=== PATIENT | female | born 1950 | race Caucasian/White ===

== ENCOUNTER 2018-02-25 00:35 | Outpatient (CLI) | payer MEDICARE, BC, SELFPAY ==
--- NOTE | 2018-02-25 16:25 | DI.MAMMO_ITS ---
SYMPTOM/DIAGNOSIS: SCREENING, Z12.31 MAMMOGRAMS: Mammograms were interpreted according to the usual protocol including computer analysis with CAD system, tomosynthesis and C view imaging. Comparison with prior examinations. Breast density B. No masses or microcalcifications are seen. There is nothing to suggest malignancy. IMPRESSION: Negative mammogram. Routine screening is recommended. Category I. MQSA ASSESSMENT OF FINDINGS: Negative. Category 1. Patient will receive a letter notifying them of these results. BI-RADS category B. There are scattered areas of fibroglandular density.
== END 2018-02-25 00:55 ==
PROVIDERS: PCP Student in an Organized Health Care Education/Training Program; Visit Provider Nurse Practitioner Family
DX: Z12.31 Encounter for screening mammogram for malignant neoplasm of breast (principal)
CPT/HCPCS: 77063; 77067

== ENCOUNTER 2018-06-02 15:16 | Outpatient (CLI) | payer MEDICARE, BC, SELFPAY ==
--- NOTE | 2018-06-02 16:15 | DI.RAD_ITS ---
SYMPTOM/DIAGNOSIS: PAIN, SWELLING, M25.562 LEFT KNEE: The joint spaces are well maintained. No joint effusion is seen. There is mild spurring of the quadriceps insertion on the patella. IMPRESSION: No acute abnormality.
== END 2018-06-02 15:36 ==
PROVIDERS: PCP Student in an Organized Health Care Education/Training Program; Visit Provider Student in an Organized Health Care Education/Training Program
DX: M25.562 Pain in left knee (principal)
CPT/HCPCS: 73562

== ENCOUNTER 2019-04-18 02:19 | Outpatient (CLI) | payer MEDICARE, BC, SELFPAY ==
--- NOTE | 2019-04-18 15:30 | DI.MAMMO_ITS ---
EXAM: MAMMO SCREENING CLINICAL HISTORY: screening Z12.39 TECHNIQUE: Mammograms were interpreted according to the usual protocol including computer analysis w [employer] CAD system, tomosynthesis and C-view imaging. COMPARISON: [id number] FINDINGS: The breasts are composed of scattered areas of fibroglandular densities, breast density category B. No suspicious masses or suspicious microcalcifications are seen. There has been no significant change . IMPRESSION: Category 1, negative mammogram. Yearly screening mammography is recommended. BI-RADS Cat 1 - Negative Breast Density - Category B - Scattered areas of fibroglandular density
== END 2019-04-18 02:39 ==
PROVIDERS: PCP Student in an Organized Health Care Education/Training Program; Visit Provider Nurse Practitioner Family
DX: Z12.31 Encounter for screening mammogram for malignant neoplasm of breast (principal)
CPT/HCPCS: 77063; 77067

== ENCOUNTER 2019-04-20 00:48 | Outpatient (CLI) | payer MEDICARE, BC, SELFPAY ==
[2019-04-20 07:36] LABS: HCT 37.2 % (36.0-46.0); HGB 11.9 g/dL (12.0-15.5); Mean Corpuscular Hemoglobin 27.2 pg (27.0-33.0); Mean Corpuscular Volume 85.1 fL (80-95); Mean Platelet Volume 8.4 fL (8.0-11.0); Platelet Count 275 x1000/uL (130-400); RBC 4.37 m/cumm (4.00-5.20); RBC Distribution Width 14.9 % (11.7-14.6); White Blood Cell Count 4.85 k/cumm (4.4-10.8)
[2019-04-20 10:07] LABS: ALT 35 U/L (14-59); AST 18 U/L (15-37); Albumin 3.6 g/dL (3.4-5.0); Alkaline Phosphatase 97 U/L (46-116); Anion Gap 7.7 mmol/L (3-11); BUN 17 mg/dL (7-18); Bilirubin, Total 0.4 mg/dL (0.2-1.0); CO2 31.3 mmol/L (21.0-32.0); Calcium 8.9 mg/dL (8.5-10.1); Calculated LDL 95 mg/dL; Chloride 100 mmol/L (98-107); Cholesterol 180 mg/dL (<200); Glucose 102 mg/dL (74-106); HDL Cholesterol 70 mg/dL (40-60); Potassium 3.9 mmol/L (3.5-5.1); Sodium 139 mmol/L (136-145); Total Protein 7.5 g/dL (6.4-8.2); Triglyceride 78 mg/dL (<150)
[2019-04-20 10:09] LABS: TSH (W/Ref FT4) 1.16 uIU/mL (0.36-3.74)
== END 2019-04-20 01:08 ==
PROVIDERS: PCP Student in an Organized Health Care Education/Training Program; Visit Provider Student in an Organized Health Care Education/Training Program
DX: I10 Essential (primary) hypertension (principal); R63.5 Abnormal weight gain; R01.1 Cardiac murmur, unspecified; R53.83 Other fatigue
CPT/HCPCS: 36415; 80053; 80061; 85027; 84443

== ENCOUNTER 2019-06-21 15:03 | Outpatient (CLI) | payer OTHER, MEDICARE, BC, SELFPAY ==
--- NOTE | 2019-06-21 13:45 | DI.RAD_ITS ---
EXAM: XR RIBS LT W PA LAT CHEST INDICATION: Pain under L breast after a fall,W19.XXXA. COMPARISON: CHEST 2 VIEWS PA,LAT from 07/07/2016 TECHNIQUE: 2D digital imaging was performed. FINDINGS: The heart size is normal. The lungs are clear. No pneumothorax is seen. A marker was placed over t he lower left ribs in the area of the patient's pain. Two oblique views of the ribs were performed. No rib fracture is identified. The left shoulder and spine appear intact. IMPRESSION: Negative chest and left ribs.
--- NOTE | 2019-06-21 13:45 | DI.RAD_ITS ---
EXAM: XR SHOULDER LT COMPLETE 2+V INDICATION: Upper arm, shoulder pain after a fall,W19.XXXA. COMPARISON: No exams were available for comparison TECHNIQUE: 2D digital imaging was performed. FINDINGS: No fracture or dislocation is seen. There are mild degenerative changes of the AC joint and glenoid. The AC joint is not widened. No tendon calcifications are seen. IMPRESSION: Negative left shoulder.
== END 2019-06-21 15:23 ==
PROVIDERS: PCP Student in an Organized Health Care Education/Training Program; Visit Provider Family Medicine
DX: M25.512 Pain in left shoulder (principal); M19.012 Primary osteoarthritis, left shoulder; R07.89 Other chest pain; W19.XXXA Unspecified fall, initial encounter
CPT/HCPCS: 71046; 71100; 73030

== ENCOUNTER 2019-06-28 14:07 | Outpatient (CLI) | payer OTHER, MEDICARE, BC, SELFPAY ==
--- NOTE | 2019-06-28 11:40 | DI.RAD_ITS ---
EXAM: XR LUMBAR SPINE COMPLETE CLINICAL HISTORY: Delayed pain, S/P fall, attn: L3-5, M54.4 LOW BACK PAIN. TECHNIQUE: 2D digital imaging was performed. COMPARISON: No exams were available for comparison FINDINGS: BONES: No fracture or destructive lesion. Vertebral bodies are unremarkable. No facet hypertrophy desiree ntified. DISKS: Intervertebral disc spaces are maintained. ALIGNMENT: Lumbar spinal alignment is within normal limits. SOFT TISSUE: Normal. IMPRESSION: Unremarkable radiographs of the lumbar spine.
== END 2019-06-28 14:27 ==
PROVIDERS: PCP Student in an Organized Health Care Education/Training Program; Visit Provider Family Medicine
DX: M54.5 Low back pain (principal); Z91.81 History of falling
CPT/HCPCS: 72110

== ENCOUNTER 2019-07-21 08:51 | Outpatient (CLI) | payer MEDICARE, BC, SELFPAY ==
--- NOTE | 2019-07-21 08:48 | DI.RAD_ITS ---
EXAM: Chest 2 Views PA,LAT CLINICAL HISTORY: Cough, rhonchi and wheezing in R upper lobe, CAP? J40 Bronchitis TECHNIQUE: 2D digital imaging was performed. COMPARISON: CHEST 2 VIEWS PA,LAT from 08/01/2010 XR RIBS LT W PA LAT CHEST from 06/21/2019 FINDINGS: The cardiac and mediastinal contours have a normal appearance. The lungs are well inflated and clear . No infiltrate, effusion or pneumothorax is seen. No spine or rib fracture is identified. IMPRESSION: Negative chest x-ray.
== END 2019-07-21 09:11 ==
PROVIDERS: PCP Student in an Organized Health Care Education/Training Program; Visit Provider Family Medicine
DX: R05 Cough (principal); J98.8 Other specified respiratory disorders; R06.2 Wheezing; J40 Bronchitis, not specified as acute or chronic
CPT/HCPCS: 71046

== ENCOUNTER 2019-11-07 12:15 | Emergency (ER) | payer MEDICARE, BC, SELFPAY ==
[2019-11-07 12:24] VITALS: BP 165/78; PULSE 85; TEMP 37; O2SAT 96
--- NOTE | 2019-11-07 13:00 | DI.RAD_ITS ---
EXAM: XR PORTABLE CHEST AP CLINICAL HISTORY: Chronic cough, rule out pneumonia TECHNIQUE: 2D digital imaging was performed. COMPARISON: CR XR CHEST 2V PA LATERAL from 07/21/2019 FINDINGS: LUNGS: Clear. No pleural abnormality seen. HEART: Normal. MEDIASTINUM: Normal. OTHER FINDINGS: None. IMPRESSION: No acute pulmonary findings. DATA REPOSITORY: RADIATION DOSE DELIVERED:
--- NOTE | 2019-11-07 13:05 | ED.GENADUL_ITS ---
Discharge Plan Disposition Patient Disposition: HOME Condition: Stable Discharge Details Chief Complaint: RespSymp Clinical Impression: Cough Primary Care Provider: Manuela Ramos ED Provider: Roberto Valentin Home Meds and New Rx's Prescriptions: Continued (DME) Compact Compressor Nebulizer Misc See Rx Instructions .ROUTE .MEDSUPPLY Qty: 1 RF: 0 magnesium oxide 400 mg magnesium capsule 400 mg PO DAILY RF: 0 paroxetine HCl [Paxil] 10 mg tablet 10 mg PO DAILY Qty: 90 RF: 3 clobetasol-emollient 0.05 % cream 15 g TP HS Qty: 1 RF: 2 ferrous sulfate [Feosol] 325 mg (65 mg iron) tablet 325 mg PO DAILY RF: 0 albuterol sulfate 90 mcg/actuation aerosol powdr breath activated 2 inh IH Q4H PRN (Reason: shortness of breath or wheezing) Qty: 1 RF: 2 multivitamin [Daily Vitamin] 1 EACH tablet 1 ea PO DAILY RF: 0 pramipexole 0.25 mg tablet 0.25 mg PO QHS Qty: 90 RF: 3 losartan-hydrochlorothiazide 100-25 mg tablet 1 tab PO DAILY Qty: 90 RF: 2 Discontinued codeine-guaifenesin 10-100 mg/5 mL liquid 10 ml PO Q6H PRN (Reason: severe cough) Qty: 100 RF: 1 No Action guaifenesin [Mucinex] 600 mg tablet extended release 12hr 600 - 1,200 mg PO Q12H Qty: 30 RF: 0 prednisone 20 mg tablet See Rx Instructions PO DAILY Qty: 1 RF: 0 benzonatate [Tessalon Perles] 100 mg capsule 100 mg PO TID PRN (Reason: cough) Qty: 40 RF: 0 Discharge Instructions Instructions: Acute Cough (ED) Additional Instructions: At this time your chest x-ray is clear, you are able to speak in full sentences, and her oxygen saturation levels are appropriate. As we discussed, you will no longer take the codeine with guaifenesin and we will add on Tessalon Perles for a trial. I cannot stress the importance of contacting your primary care provider for outpatient reevaluation and likely referral to pulmonology if your symptoms persist. Please watch for new or worsening symptoms and return to the ER for any concerns Discharge Data Discharge Date/Time-TO BE ENTERED AT DEPARTURE: 11/07/19 15:18 Medical Decision Making <Rita Riojas - Last Filed: 11/09/19 17:14> 69-year-old female presents with cough, dry since June. Patient states cough is worse at night and is keeping her from sleeping. She also describes midepigastric burning sensation and expiratory wheezes. Has been being seen by PCP via telemedicine and has been prescribed albuterol inhalers, codeine with guaifenesin cough suppressant. Patient does have a history of restless leg syndrome, hypertension, cardiac murmur. She is afebrile satting 96% on room air upon initial evaluation. She does have some scattered expiratory wheezes on auscultation. Also associated with sore throat posterior oropharynx slightly red, no exudate tonsils 1+ bilaterally. COVID testing ordered, portable chest x-ray ordered. Differential diagnosis includes bronchitis, COVID 19, pneumonia, COPD. Patient is not a smoker denies drugs or alcohol. We have been off to oncoming provider MALACHI Sandhu pending chest x-ray. <MALACHI Lloyd - Last Filed: 11/07/19 14:46> This is a 69-year-old female with a history of asthmatic bronchitis, hypertension, presenting to the ER for evaluation of a dry cough persistent since June. I received signout from ALEXIS Riojas, please see her note for initial HPI and presentation. At time of signout x-ray is pending. She denies any chest pain, pain or swelling in her legs. Does have a mild sore throat secondary to coughing. She is not a smoker. She does have a family history of lung CA. X-ray reviewed by me and read by radiology as unremarkable. Discussed these findings with patient. Patient appears well, nontoxic. He is able to speak in full sentences. O2 sats are in the high 90s on room air. Lungs are clear to auscultation. She does have a dry, hacking cough. We discussed her negative chest x-ray and treatment options. She did not do well with the codeine with guaifenesin that was prescribed by her primary care provider. She has since discontinued this. I will try Azeb Reynoso. I expressed to the patient the importance of outpatient follow-up with her primary care provider and likely referral to a manager combination for further evaluation of her symptoms. Patient is agreeable to this plan and has no additional questions or concerns at this time. Medical Records Medical records reviewed: Yes I reviewed the patient's medical records. Imaging Data Radiologic Study: Attestation: I personally reviewed and interpreted this imaging study as follows: Imaging: X-Ray Radiologist's impression: Chest x-ray negative HPI <Rita Riojas - Last Filed: 11/09/19 17:14> General Mode of arrival: ambulatory . Date/Time Provider Initiated Documentation: 11/07/19 12:28 . Limitations to Documentation: no limitations . Information obtained by: patient . HPI Narrative: 69-year-old female presents with cough, dry since June. Patient states cough is worse at night and is keeping her from sleeping. She also describes midepigastric burning sensation and expiratory wheezes. Has been being seen by PCP via telemedicine and has been prescribed albuterol inhalers, codeine with guaifenesin cough suppressant. Patient does have a history of restless leg syndrome, hypertension, cardiac murmur. She is afebrile satting 96% on room air upon initial evaluation. She does have some scattered expiratory wheezes on auscultation. Also associated with sore throat posterior oropharynx slightly red, no exudate tonsils 1+ bilaterally. Related Data Home Medications Medication Instructions Recorded Confirmed multivitamin [Daily Vitamin] 1 ea PO DAILY tab 04/18/13 11/09/19 losartan 100 1 tab PO DAILY #90 tab-cap 03/03/19 11/09/19 mg-hydrochlorothiazide 25 mg tablet pramipexole 0.25 mg tablet 0.25 mg PO QHS #90 tab 03/03/19 11/09/19 clobetasol-emollient 0.05 % 15 g TP HS #1 tube 03/22/19 11/09/19 topical cream paroxetine HCl 10 mg tablet 10 mg PO DAILY #90 tab-cap 03/22/19 11/09/19 magnesium oxide 400 mg PO DAILY 04/13/19 11/09/19 ferrous sulfate 325 mg (65 mg 325 mg PO DAILY 06/21/19 11/09/19 iron) tablet albuterol sulfate 90 mcg/actuation 2 inh IH Q4H PRN #1 each 08/02/19 11/09/19 breath activated powder inhaler nebulizers #1 each 08/04/19 11/09/19 benzonatate 100 mg capsule 100 mg PO TID PRN #40 cap 11/09/19 11/09/19 guaifenesin 600 mg tablet, 600 - 1,200 mg PO Q12H #30 tab 11/09/19 11/09/19 extended release 12 hr prednisone 20 mg tablet See Rx Instructions PO DAILY #1 tab 11/09/19 11/09/19 Previous Rx's Medication Instructions Recorded losartan 100 1 tab PO DAILY #90 tab-cap 03/03/19 mg-hydrochlorothiazide 25 mg tablet pramipexole 0.25 mg tablet 0.25 mg PO QHS #90 tab 03/03/19 clobetasol-emollient 0.05 % 15 g TP HS #1 tube 03/22/19 topical cream paroxetine HCl 10 mg tablet 10 mg PO DAILY #90 tab-cap 03/22/19 albuterol sulfate 90 mcg/actuation 2 inh IH Q4H PRN #1 each 08/02/19 breath activated powder inhaler nebulizers #1 each 08/04/19 benzonatate 100 mg capsule 100 mg PO TID PRN #40 cap 11/09/19 guaifenesin 600 mg tablet, 600 - 1,200 mg PO Q12H #30 tab 11/09/19 extended release 12 hr prednisone 20 mg tablet See Rx Instructions PO DAILY #1 tab 11/09/19 Allergies Allergy/AdvReac Type Severity Reaction Status Date / Time ampicillin Allergy Severe rash Verified 11/07/19 12:30 penicillin G benzathine Allergy Severe rash Verified 11/07/19 12:30 [From Bicillin C-R] penicillin G procaine Allergy Severe rash Verified 11/07/19 12:30 [From Bicillin C-R] Sulfa (Sulfonamide Allergy rash Verified 11/07/19 12:30 Antibiotics) General Stated Complaint: RespSymp LAY: 3 Review of Systems <Rita Riojas - Last Filed: 11/09/19 17:14> Narrative: Constitutional: Negative for weight loss, alert and oriented, well groomed, normal body habitus, appears comfortable. HEENT: Denies trauma, headaches, blurry vision, nasal discharge, sore throat, trouble swallowing. Chest: Denies chest pain, palpitations, irregular rhythm, hypertension. Respiratory: Denies Shortness of breath, hemoptysis. Positive cough, history of asthma GI: Denies abdominal pain, nausea, vomiting, diarrhea, constipation. : Denies dysuria, hematuria, flank pain, rectal bleeding. Neuro: Denies dizziness, blurry vision, weakness, syncope, headache or facial numbness. Hematologic: Denies easy bruising, intolerance to heat or cold, hair loss. PFSH <Rita Riojas - Last Filed: 11/09/19 17:14> Medical History Hypertension (Chronic) Murmur (Acute) Surgical History section (05/22/88) H/O foot surgery (Acute) Family History Mother , lymphoma at age 68. 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 [employer] What is your relationship status?: Panel score (0-1 are the most socially isolated patients): 1 What type of physical activity do you participate in: walking Duration: 30-45 minutes/day Frequency: daily Seatbelt use: always Helmet use: Yes Drive intox or ride w/intox truck driver supervisor: No Water heater temp set <120 deg: Yes Working smoke detector in home: Yes Fire extinguisher in home: Yes Carbon monox detector in home: Yes 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 Appears stated age. Normal body habitus. Head: Normocephalic, no trauma. Eyes: Pupils PERRLA, Red reflex noted, EOM's intact. Eyelids symmetrical without lesions, discharge, or swelling. ENT: Bilateral TM's WNL, External ear normal to inspection, no mastoid TTP, swelling, or erythema, Nasal turbinates WNL, no nasal discharge. Normal dentition, Posterior pharynx slightly erythemic, no exudate. Chest: RRR, Normal S1, S2, distal pulses intact. Resp: Lungs clear to auscultation bilaterally, no wheezes, rales, or rhonchi. Dry hacking cough noted, Musculoskeletal: Normal gait, 5/5 strength to all four extremities. Skin: No suspicious rashes or lesions. Capillary refill less than 2 sec. Neurologic: Cranial nerves II-XII intact. Alert and oriented x 3. DTR's intact. Hematologic/Lymphatic: No ecchymosis, no lymphadenopathy. Course <Rita Riojas - Last Filed: 11/09/19 17:14> Vital Signs Vital signs: Vital Signs Temperature 37.0 C 11/07/19 12:24 Pulse 85 11/07/19 12:24 Blood Pressure 165/78 H 11/07/19 12:24 Pulse Oximetry 96 11/07/19 12:24 Temperature 37.0 C 11/07/19 12:24 Temperature Source Temporal Artery Scan 11/07/19 12:24 Pulse 85 11/07/19 12:24 Respiratory Effort Non-Labored 11/07/19 12:33 Respiratory Depth Normal 11/07/19 12:33 Blood Pressure 165/78 H 11/07/19 12:24 Blood Pressure Position Sitting 11/07/19 12:24 Pulse Oximetry 96 11/07/19 12:24 Oxygen Delivery Method Room Air 11/07/19 12:24 Oxygen Flow Rate 0 11/07/19 12:24 Pain Level 0 11/07/19 12:24 Sign Out <Rita Riojas - Last Filed: 11/09/19 17:14> Sign Out Data: Sign Out Comment: Pending Xray result, Probable discharge, Bronchitis vs. Pneumonia, versus Covid Last updated by Rita Riojas at 11/07/19 13:41
[2019-11-07] MEDS: Dexamethasone 4 MG TAB 10 MG PO (13:21)
[2019-11-07] MEDS: Benzonatate 100 MG CAP (14:50)
[2019-11-08 13:54] LABS: COVID-19 RT-PCR UVMMC Result Negative (Negative)
== END 2019-11-07 15:18 | disposition home or self-care (01) ==
PROVIDERS: Registered Nurse Emergency; Emergency Provider Physician Assistant; PCP Student in an Organized Health Care Education/Training Program
DX: R05 Cough (principal); J02.9 Acute pharyngitis, unspecified; Z11.59 Encounter for screening for other viral diseases; I10 Essential (primary) hypertension
CPT/HCPCS: 99283; U0003; 71045; J8540

== ENCOUNTER 2020-02-15 13:08 | Outpatient (REF) | payer MEDICARE, BC, SELFPAY ==
[2020-02-15 20:09] LABS: Abs Immature Grans 0.02 10^3/uL (0.0-0.06); Absolute Basophil Count 0.04 10^3/uL (0.0-0.2); Absolute Eosinophil Count 0.11 10^3/uL (0.0-0.7); Absolute Lymphocyte Count 1.58 10^3/uL (1.2-3.4); Absolute Monocyte Count 0.39 10^3/uL (0.1-0.8); Absolute Neutrophil Count 3.57 10^3/uL (1.2-6.7); Basophils % 0.7; Eosinophils % 1.9; HGB 11.7 g/dL (11.2-15.7); Immature Grans % 0.4; Lymphocytes % 27.7; MCH 29.5 pg (27.0-33.0); MCHC 32.5 % (32.0-36.0); MCV 90.7 fL (80-95); MPV 9.8 fL (8.0-11.0); Monocytes % 6.8; Neutrophils % 62.5; Nucleated RBC 0 %; Platelet Count 260 10^3/uL (130-400); RBC 3.97 10^6/uL (3.93-5.22); RDW 12.4 % (11.7-14.6); RDW-SD 40.9 fL; WBC 5.71 10^3/uL (4.4-10.8)
[2020-02-15 20:22] LABS: Anion Gap 9.1 mmol/L (3-11); BUN 12 mg/dL (7-18); CO2 26.9 mmol/L (21.0-32.0); CREATININE 0.74 mg/dL (0.55-1.02); Calcium 9.4 mg/dL (8.5-10.1); Chloride 101 mmol/L (98-107); Glucose 138 mg/dL (74-106); Potassium 3.8 mmol/L (3.5-5.1); Sodium 137 mmol/L (136-145)
== END 2020-02-15 13:28 ==
LOC: LBO 13:08
PROVIDERS: PCP Student in an Organized Health Care Education/Training Program; Visit Provider Student in an Organized Health Care Education/Training Program
DX: R79.89 Other specified abnormal findings of blood chemistry (principal); R06.02 Shortness of breath; Z86.2 Personal history of diseases of the blood and blood-forming organs and certain disorders involving the immune mechanism
CPT/HCPCS: 80048; 85025

== ENCOUNTER 2020-02-20 02:03 | Outpatient (CLI) | payer MEDICARE, BC, SELFPAY ==
--- NOTE | 2020-02-20 07:00 | DI.CT_ITS ---
EXAM: CT CHEST PE CTA CLINICAL HISTORY: Acute worsening SOB, Lingering Cough,BREATHLESSNESS,R05,R06.02. TECHNIQUE: Imaging Protocol: Axial CT angiography was performed with multi-slice acquisition and mu lti-planar and/or 3D reconstructions. CONTRAST MATERIAL: Intravenous: Omnipaque 350 Contrast volume:100 cc's COMPARISON: CR XR PORTABLE CHEST AP from 11/07/2019 FINDINGS: Pulmonary Arteries: No evidence of filling defect to suggest pulmonary emboli. Tracheobronchial tree: Patent where visualized. Mediastinum and Marlene: No dominant adenopathy or fluid collection. Pulmonary parenchyma: No consolidation or dominant measurable mass. Expiratory changes. Pleura: No effusion or pneumothorax. Heart: The heart is not dilated. Mild coronary artery calcifications are seen. Aorta: Thoracic aorta non-dilated. Upper abdomen: Unremarkable. Bones: Normal. IMPRESSION: No evidence of pulmonary embolism or other acute abnormality.. RADIATION DOSE DELIVERED: 288.21mGy.cm Total DLP DATA REPOSITORY: All CT scans at this facility are submitted to the National Radiology Data Registry (NRDR) Dose Index Registry (DIR) with the [employer] (ACR). RADIATION OPTIMIZATION: All CT scans at this facility use at least one of these dose optimization te chniques: automated exposure control; mA and/or kV adjustment per patient size (includes targeted exa ms where dose is matched to clinical indication); or iterative reconstruction.
[2020-02-20] MEDS: Omnipaque 350 MG/ML 100 ML BTL IV (09:00)
== END 2020-02-20 02:23 ==
PROVIDERS: PCP Student in an Organized Health Care Education/Training Program; Visit Provider Student in an Organized Health Care Education/Training Program
DX: R06.02 Shortness of breath (principal); R05 Cough; R00.0 Tachycardia, unspecified
CPT/HCPCS: 71275; J3490

== ENCOUNTER 2020-02-28 00:50 | Outpatient (CLI) | payer MEDICARE, BC, SELFPAY ==
--- NOTE | 2020-02-28 14:58 | DI.US_ITS ---
APPROVED REPORT EXAM: Comprehensive 2D, Doppler, and color-flow Echocardiogram Patient Location: Out-Patient Turbogenerator Operator: Lisa Ames RDCS (AE) Indications: SOB, Fatigue, APNEA Other Information Study Quality: Good Conclusion Left Ventricle : The left ventricle is normal size. The left ventricular systolic function is normal. The left ventricular ejection fraction is within the normal range. There is normal left ventricular wall thickness. There is normal LV segmental wall motion. The left ventricular diastolic function is normal. LVEF is 55%. Right Ventricle : The right ventricle is normal size. The right ventricular systolic function is norm al. The RVSP is 33.0mmHg. Atria : The left atrium size is normal. The right atrium size is normal. Mitral Valve : The mitral valve is normal in structure. No evidence of mitral valve stenosis. Mild mi tral regurgitation. Great Vessels : The aortic root is normal in size. The ascending aorta is moderately dilated. Aortic arch is normal in caliber. IVC is normal in size and collapses >50% with inspiration. Wall motion Left Ventricle The left ventricle is normal size. The left ventricular systolic function is normal. The left ventric ular ejection fraction is within the normal range. There is normal left ventricular wall thickness. T here is normal LV segmental wall motion. The left ventricular diastolic function is normal. There is no ventricular septal defect visualized. LVEF is 55%. Right Ventricle The right ventricle is normal size. The right ventricular systolic function is normal. The RVSP is 33 .0mmHg. Atria The left atrium size is normal. The right atrium size is normal. The interatrial septum is intact wit h no evidence for an atrial septal defect. Aortic Valve The aortic valve is normal in structure. Aortic valve is trileaflet. There is no aortic valvular sten osis. No aortic regurgitation is present. Mitral Valve The mitral valve is normal in structure. No evidence of mitral valve stenosis. Mild mitral regurgitat ion. Tricuspid Valve The tricuspid valve is normal in structure. There is no tricuspid valve stenosis. Trace tricuspid reg urgitation. Pulmonic Valve The pulmonary valve is normal in structure. There is no pulmonic valvular stenosis. Trace pulmonic re gurgitation. Great Vessels The aortic root is normal in size. The ascending aorta is moderately dilated. Aortic arch is normal i n caliber. IVC is normal in size and collapses >50% with inspiration. Pericardium There is no pericardial effusion. 2D Dimensions IVSD d PLAX 1.05 cm F: 0.6-1.0 LV Vol A2C d MOD 81.6 mL LVPW d PLAX 1.04 cm F: 0.6 - 1.0 LV Vol A4C d MOD 66.8 mL LVID d PLAX 4.31 cm F: 3.8 - 5.2 LA vol/ BSA A2C s A-L 33.1 mL/m2 LVDs 3.00 cm F: 2.2 - 3.5 LA vol/ BSA A4C s A-L 36.3 mL/m2 Ao Root d 3.00 cm F: 2.7 - 3.3 LA Vol/ BSA Biplane s A-L 35.2 mL/m2 RA Area A4C 15.45 cm2 LA Area A4C s MOD 20.81 cm2 RA Vol/ BSA A4C s A-L 20.8 mL/m2 LA Area A2C s MOD 19.58 cm2 Ao Asc Diam d 3.63 cm F: 2.3 - 3.1 LV EF A4C MOD 52.4 % LV EF Teichholz 57.5 % LV EF A2C MOD 54.8 % LVEF (Cruz's) 53.10 % F: 54 - 74 LV EF Biplane MOD 53.1 % LV Volume 57.34 mL F: 46 - 106 SV 39.50 mL LV Volume Index 31.16 mL/m2 F: 29 - 61 SV Index 21.39 mL/m2 LV Vol Biplane MOD 74.4 mL FS 29.95 % M-Mode TAPSE 2.80 cm (M/F) >1.7 LV Diastology MV E' medial 0.093 (>0.07 m/s) MV E Vmax 0.88 (0.4-1.3 m/s) LV E/e MED 9.45 (<14) MV E' lateral 0.114 (>0.1 m/s) LV E/e LAT 7.70 (<14) MV E/E' medial 9.47 MV E/E' lateral 7.74 Aortic Valve LVOT Area 3.44 cm2 AoV Area Vmax 2.49 cm2 LVOT Vmax 0.91 m/s AoV Area/ BSA (Vmax) 1.35 cm2/m2 LVOT Mean Vic. 0.59 m/s SHREE Mean Vic. 2.32 cm2 LVOT Peak Grad 3.3 mmHg SHREE Mean Vic. Index 1.26 cm2/m2 LVOT Mean Grad 1.6 mmHg LVOT VTI 0.160 m LVOT Diam s 2.05 cm AoV Vmax 1.25 m/s Velocity Ratio 0.72 AoV Mean Vic. 0.87 m/s AoV Peak Grad 6.3 mmHg LVOT SV 55.11 mL AoV Mean Grad 3.6 mmHg AoV VTI 0.213 m AoV Area VTI 2.59 cm2 AoV Area/ BSA (VTI) 1.40 cm/m2 Mitral Valve MV DT 227 (160-240 msec) MV PHT 66 msec MV Area PHT 3.35 cm2 Pulmonary Valve PV Vmax 0.89 (0.5-1.5 m/s) RVOT Peak Gr. 1.69 mmHg PV Peak Grad 3.2 mmHg RVOT Mean Gr. 0.95 mmHg PV Mean Grad 1.8 mmHg RVOT VTI 0.129 m PV VTI 0.183 m RVOT Vmax 0.65 m/s Tricuspid Valve TR Peak Grad 29.9 mmHg TR Vmax 2.74 m/s RA Pressure 3.00 mmHg RVSP (TR) 33.0 mmHg
== END 2020-02-28 01:10 ==
PROVIDERS: PCP Student in an Organized Health Care Education/Training Program; Visit Provider Student in an Organized Health Care Education/Training Program
DX: R06.81 Apnea, not elsewhere classified (principal); I05.2 Rheumatic mitral stenosis with insufficiency
CPT/HCPCS: 93306

== ENCOUNTER 2020-04-03 17:36 | Outpatient (REF) | payer MEDICARE, BC, SELFPAY | END 2020-04-03 17:56 | LOC: LBN 17:36 | PROVIDERS: PCP Student in an Organized Health Care Education/Training Program; Visit Provider Nurse Practitioner Family | DX: R30.0 Dysuria (principal) | CPT/HCPCS: 87077; 87086; 87186 ==

== ENCOUNTER 2020-05-04 01:18 | Outpatient (CLI) | payer MEDICARE, BC, SELFPAY ==
--- NOTE | 2020-05-04 15:00 | DI.MAMMO_ITS ---
EXAM: MAMMO SCREENING CLINICAL HISTORY: screening TECHNIQUE: Mammograms were interpreted according to the usual protocol including computer analysis w [employer] CAD system, tomosynthesis and C-view imaging. COMPARISON: 2010 through 2018 FINDINGS: The breasts are composed of scattered fibroglandular densities, Breast Density category B. No suspicious masses or suspicious microcalcifications are seen. Incidental mild vascular calcificat ions. No skin thickening or abnormal axillary lymph nodes are seen. There has been no significant change from prior exams. IMPRESSION: BI-RADS Category 1, Negative mammogram Yearly screening mammography is recommended. Breast Density - Category B, scattered fibroglandular densities. A negative radiographic report should not delay biopsy if a dominant or clinically suspicious mass is present. Up to ten percent of cancers are not identified on mammography. A negative report may reinforce clinical impression. Adenosis and dense breasts may obscure an underlying neoplasm. False positive reports average 6 to 10%. Patient will receive a letter notifying them of these results.
== END 2020-05-04 01:38 ==
PROVIDERS: PCP Student in an Organized Health Care Education/Training Program; Visit Provider Nurse Practitioner Family
DX: Z12.31 Encounter for screening mammogram for malignant neoplasm of breast (principal)
CPT/HCPCS: 77063; 77067

== ENCOUNTER 2021-03-15 02:12 | Outpatient (CLI) | payer MEDICARE, BC, SELFPAY ==
[2021-03-15 11:22] LABS: HGB 12.7 g/dL (11.2-15.7); MCH 29.8 pg (27.0-33.0); MCHC 33.4 % (32.0-36.0); MCV 89.2 fL (80-95); MPV 8.8 fL (8.0-11.0); Platelet Count 233 10^3/uL (130-400); RBC 4.26 10^6/uL (3.93-5.22); RDW 12.2 % (11.7-14.6); WBC 6.22 10^3/uL (4.4-10.8)
[2021-03-15 12:06] LABS: ALT 36 U/L (14-59); AST 20 U/L (15-37); Albumin 3.8 g/dL (3.4-5.0); Alkaline Phosphatase 90 U/L (46-116); Anion Gap 7.5 mmol/L (3-11); BUN 16 mg/dL (7-18); Bilirubin, Total 0.4 mg/dL (0.2-1.0); CO2 32.5 mmol/L (21.0-32.0); CREATININE 0.7 mg/dL (0.55-1.02); Calcium 9.3 mg/dL (8.5-10.1); Calculated LDL 128 mg/dL (<100); Chloride 99 mmol/L (98-107); Cholesterol 219 mg/dL (<200); Glucose 99 mg/dL (74-106); HDL Cholesterol 68 mg/dL (40-60); Potassium 3.8 mmol/L (3.5-5.1); Sodium 139 mmol/L (136-145); Total Protein 7.7 g/dL (6.4-8.2); Triglyceride 115 mg/dL (<150)
== END 2021-03-15 02:13 | disposition home or self-care (01) ==
LOC: LBO 02:12
PROVIDERS: PCP Student in an Organized Health Care Education/Training Program; Visit Provider Nurse Practitioner
DX: I10 Essential (primary) hypertension (principal); R01.1 Cardiac murmur, unspecified
CPT/HCPCS: 36415; 80053; 80061; 85027

== ENCOUNTER 2021-05-23 02:21 | Outpatient (CLI) | payer MEDICARE, BC, SELFPAY ==
--- NOTE | 2021-05-23 08:20 | DI.MAMMO_ITS ---
Exam(s) MAMMO SCREENING EXAM: MAMMO SCREENING CLINICAL HISTORY: screening. TECHNIQUE: Bilateral full field digital CC and MLO mammographic images were obtained with 3D tomosyn thesis and utilizing computer aided detection (CAD). COMPARISON: Prior mammograms dating back to 2012, the most recent being April 2020. FINDINGS: There are no new spiculated masses nor malignant appearing microcalcification groups. There is no significant architectural distortion nor skin thickening-retraction. IMPRESSION: No radiographic evidence of malignancy. BI-RADS Category 1 - Negative Breast Density - Category B - Scattered areas of fibroglandular density Breast density Category C or D implies that the patient has dense breast tissue. Dense breast tissue can make it harder to find cancer on a mammogram. Dense breast tissue is also associated with an incr eased risk of breast cancer. This information about the result of the mammogram report was provided to the patient to raise their awareness. Use this report when you speak with the patient about their risks for breast cancer, which includes their family history. At that time, you may recommend additional screening tests (Ultrasoun d or MRI) as these tests may add significant information. A negative radiographic report should not delay biopsy if a dominant or clinically suspicious mass is present. Up to ten percent of cancers are not identified on mammography. A negative report may reinforce clinical impression. Adenosis and dense breasts may obscure an underlying neoplasm. False positive reports average 6 to 10%. Patient will receive a letter notifying them of these results.
== END 2021-05-23 02:41 ==
PROVIDERS: PCP Student in an Organized Health Care Education/Training Program; Visit Provider Nurse Practitioner Family
DX: Z12.31 Encounter for screening mammogram for malignant neoplasm of breast (principal)
CPT/HCPCS: 77063; 77067

== ENCOUNTER 2022-12-09 02:39 | Outpatient (CLI) | payer MEDICARE, BC, SELFPAY ==
[2022-12-09 07:58] LABS: Anion Gap 7.1 mmol/L (3-11); BUN 12 mg/dL (7-18); CO2 31.9 mmol/L (21.0-32.0); CREATININE 0.7 mg/dL (0.55-1.02); Calcium 9.3 mg/dL (8.5-10.1); Calculated LDL 113 mg/dL (<100); Chloride 99 mmol/L (98-107); Cholesterol 196 mg/dL (<200); Estimated GFR 91.83 (mL/min/1.73m2); Glucose 108 mg/dL (74-106); HDL Cholesterol 57 mg/dL (40-60); Magnesium 1.7 mg/dL (1.8-2.4); Potassium 3.9 mmol/L (3.5-5.1); Sodium 138 mmol/L (136-145); TSH (W/Ref FT4) 1.75 uIU/mL (0.36-3.74); Triglyceride 130 mg/dL (<150)
[2022-12-09 08:12] LABS: Vitamin D 25 Total 32.2 ng/mL (30-100)
== END 2022-12-09 02:40 | disposition home or self-care (01) ==
LOC: LBO 02:40
PROVIDERS: PCP Student in an Organized Health Care Education/Training Program; Visit Provider Student in an Organized Health Care Education/Training Program
DX: I10 Essential (primary) hypertension (principal); R63.5 Abnormal weight gain; J45.909 Unspecified asthma, uncomplicated; M25.562 Pain in left knee; Z79.899 Other long term (current) drug therapy; R06.02 Shortness of breath
CPT/HCPCS: 36415; 80048; 80061; 82306; 94060; 94726; 94729; 83735; 84443

== ENCOUNTER 2022-12-09 04:03 | Outpatient (CLI) | payer MEDICARE, BC, SELFPAY ==
[2022-12-09] MEDS: Albuterol HFA 18 GM 200 PUFF INH IH (09:03)
[2022-12-09] MEDS: Inhaler, Assist Device 1 EACH MC (09:04)
--- NOTE | 2022-12-09 12:32 | W.PFT ---
Date of service: 12/09/22 Time of Service: 08:00 Pulmonary Function Test Result Indications: Cough Interpretation Spirometry: There is no airflow limitation. No bronchodilator response. The FVC is low. Lung Volumes: Normal lung volumes Diffusion Capacity: Normal diffusion Airway Pressure: Normal airways pressures Impression Normal pulmonary function testing. The FVC is likely due to an elevated BMI. Clinical Correlation therefore is recommended.
== END 2022-12-09 04:04 | disposition home or self-care (01) ==
LOC: RT 04:03
PROVIDERS: PCP Student in an Organized Health Care Education/Training Program; Visit Provider Student in an Organized Health Care Education/Training Program
DX: R06.02 Shortness of breath; J45.901 Unspecified asthma with (acute) exacerbation; R05.2 Subacute cough
CPT/HCPCS: 94060; 94726; 94729

== ENCOUNTER → 2023-02-03 00:47 | Outpatient (CLI) | payer MEDICARE, BC, SELFPAY ==
--- NOTE | 2023-02-03 08:30 | DI.DEXA_ITS ---
Exam(s) XR DEXA BONE DENSITY W/WO GENESIS EXAM: XR DEXA BONE DENSITY W/WO GENESIS CLINICAL HISTORY: evaluate bone density.OSTEOPENIA,SCREENING FOR OSTEOPOROSIS IN POSTMENOPAUS TECHNIQUE: Hologic Horizon C densitometer analysis of left hip, lumbar spine and left forearm. Lat eral survey image of the thoracic and lumbar spine. COMPARISON: DX DEXA BONE DENSITY WITH GENESIS from 05/29/2015 CR XR LUMBAR SPINE COMPLETE from 06/28/2019 FINDINGS: Lateral view of the thoracic and lumbar spine shows no evidence of compression fractures. Bone mineral density measurements of the lumbar spine correspond to a total T-score of -0.4, in the normal range. This represents a 4.3 percent increase from 2016. Bone mineral density measurements of the left hip correspond to a total T-score of -0.9 . The femora l neck T-score is -1.8, in the osteopenic range. This represents a 5.9 percent increase from the pr ior exam.. Theleft forearm bone mineral density measurements correspond to a T-score of the distal 3rd of -1.1, in the osteopenic range. Not significantly changed from the prior exam. . IMPRESSION: Normal bone mineral density in lumbar spine. Osteopenia of the hip and forearm.
== END ==
PROVIDERS: PCP Student in an Organized Health Care Education/Training Program; Visit Provider Student in an Organized Health Care Education/Training Program
DX: M85.80 Other specified disorders of bone density and structure, unspecified site (principal); T46.4X5A Adverse effect of angiotensin-converting-enzyme inhibitors, initial encounter; Z78.0 Asymptomatic menopausal state; Z13.820 Encounter for screening for osteoporosis
CPT/HCPCS: 77080

== ENCOUNTER 2024-02-04 20:18 | Outpatient (REF) | payer MEDICARE, BC, SELFPAY ==
--- OUTSIDE RECORDS SUMMARY | 2024-02-04 20:21 | XMS_ITS | Encounter Summary ---
Author Organization [facility] Address [address] [place] [address] Care Team Providers Care Dietetic Assistant Name Role Phone Unavailable Primary Care Provider Unavailabl e Encounter Details Date Type Department Care Team (Late st Contact Info) Description 06/19/1999 Results Only [facility] - Maple conversion [address] [place] [address] Manjinder Avitia MD [address] [facility] [address] [address] [place] [address] Social History Tobacco Use Types Packs/Day Years Used Date Smoking Tobacco: Never Assessed Sex and Gender Information Value Date Recorded Sex Assigned at Not on file Gender Identity Not on file Sexual Orientation Not on file documented as of this encounter Plan of Treatment Not on file documented as of this encounter Procedures Procedure Name Priority Date/Time Associated Diagnosis Comments CYTOPATHOLOGY Routine 06/19/1999 11:21 EST documented in this encounter Results * CYTOPATHOLOGY (06/19/1999 11:21 EST) Pathology Report: CYTOPATHOLOGY REPORT Reports generated via electronic interface contain original data; however they are lacking the format of the original report. Caution should be taken when reading/interpreti ng unformatted reports. Name: ? AMA CHAPIN ? Accession #: ? [id number] : ? 1950 (Age: 49) ??F ?Collect Date: ? 06/19/1999 Location: ?Receive Date: ? 06/19/1999 Provider: ?MANJINDER AVITIA MD Copy to: ?MANJINDER AVITIA MD ? Specimen/Source: ?Pap Smear (One Slide) Last Menstrual Period: ? GYNECOLOGIC ??CYTOPATHOLOGY ??REPORT Name: AMA CHAPIN ? [facility] : 1950 ?? 49Y F ?Client ID: [id number] SS#: [id number] ? Clinician: MANJINDER AVITIA MD ?? Location: [facility] ??Copy to: ?? Specimen: ?Pap Smear (One Slide) ? Source: Cervix/Endocervix ?Collected: 06/14/99 ? Received: 06/19/1999 ?LMP: ?Hormone Therapy: No ? : No ? Radiation Therapy: No ?? Post : No ?Chemotherapy: No ?IUD: No ? Prev Abnormal Pap: Yes ?? Clinical Hx: Post Menopausal ?(Blank sanchez indicate information not provided on requisition) SPECIMEN ADEQUACY: ? Satisfactory For Evaluation ?? GENERAL CATEGORIZATION: ? BENIGN CELLULAR CHANGES ?? DESCRIPTIVE DIAGNOSIS: ? Reactive Cellular Changes Associated With Inflammation Present ? (Includes Repair) ? Reviewed And Electronically Signed By: ? Luis Mccurdy M.D. ? Report Date: ?? 06/20/1999 [facility] Archived Tests - Final Diagnosis Text Field: Clinical History : Post Menopausal ? Document reviewed and electronically signed by: ? Conversion ? Report Date: ??06/20/1999 00:00 End of Report [facility] 06/19/1999 11:2 1 EST 06/19/1999 11:22 EST Manjinder Avitia MD PATHOLOGY ORDERABLES Performing Organization Address City/State/[facility] Co de Phone Number VIELKA DALTON [address] [place] [address] documented in this encounter Visit Diagnoses Not on filedocumented in this encounter
--- OUTSIDE RECORDS SUMMARY | 2024-02-04 20:21 | XMS_ITS | Encounter Summary ---
Author Organization [facility] Address [address] [place] [address] Care Team Providers Care Rn Documentation Name Role Phone Unavailable Primary Care Provider Unavailabl e Encounter Details Date Type Department Care Team (Late st Contact Info) Description 09/08/2006 Results Only [facility] - Maple conversion [address] [place] [address] Bruno Parker MD [address] [place] [address] Social History Tobacco Use Types Packs/Day Years Used Date Smoking Tobacco: Never Assessed Sex and Gender Information Value Date Recorded Sex Assigned at Not on file Gender Identity Not on file Sexual Orientation Not on file documented as of this encounter Plan of Treatment Not on file documented as of this encounter Procedures Procedure Name Priority Date/Time Associated Diagnosis Comments SURGICAL PATHOLOGY Routine 09/08/2006 0:00 EDT documented in this encounter Results * SURGICAL PATHOLOGY (09/08/2006 0:00 EDT) Pathology Report: SURGICAL PATHOLOGY REPORT Reports generated via electronic interface contain original data; however they are lacking the format of the original report. Caution should be taken when reading/interpreti ng unformatted reports. Name: ? AMA CHAPIN ? Accession #: ? [id number] ? : ? 1950 (Age: 56) ??F ? Collect Date: ? 09/08/2006 ? Location: ? [facility] ? Receive Date: ? 09/08/2006 ? Provider: BRUNO PAKRER MD Copy to: ? Final Pathologic Diagnosis: ? Colon, sigmoid, polyp, biopsy: 1. ??Colonic mucosa with surface hyperplastic changes. 2. ??No adenomatous mucosa identified. Document reviewed and electronically signed by: Redd Nathan MD Report ??Date: 09/10/2006 14:54 By the signature above, the attending physician certifies that he/she has personally conducted a gross and/or microscopic examination of the described specimens and rendered or confirmed the above diagnosis. Specimen(s) Received: ? Sigmoid polyp Clinical History: ? Asymp screening colonoscopy Gross Description: ? Received in Hollande' s fixative labelled Tavares and sigmoid polyp is a 0.3 x 0.2 x 0.1 cm almaguer-pink polypoid portion of soft tissue. The specimen is submitted intact in one cassette. (Bentley Lanza ??JT)/jbm End of Report VIELKA DALTON 09/08/2006 09/08/2006 1:4 6 EDT Bruno Parker MD PATHOLOGY ORDERABLES Performing Organization Address City/State/[facility] Co de Phone Number VIELKA DALTON [address] [place] [address] documented in this encounter Visit Diagnoses Not on filedocumented in this encounter
--- OUTSIDE RECORDS SUMMARY | 2024-02-04 20:21 | XMS_ITS | Encounter Summary ---
Author Organization [facility] Address [address] [place] [address] Care Team Providers Care Field Auditor Name Role Phone Unavailable Primary Care Provider Unavailabl e Encounter Details Date Type Department Care Team (Late st Contact Info) Description 06/20/2003 Results Only [facility] - Maple conversion [address] [place] [address] Roseanne Harris, [facility] [address] [place] [address] Social History Tobacco Use Types Packs/Day Years Used Date Smoking Tobacco: Never Assessed Sex and Gender Information Value Date Recorded Sex Assigned at Not on file Gender Identity Not on file Sexual Orientation Not on file documented as of this encounter Plan of Treatment Not on file documented as of this encounter Procedures Procedure Name Priority Date/Time Associated Diagnosis Comments CYTOPATHOLOGY Routine 06/20/2003 0:00 EST documented in this encounter Results * CYTOPATHOLOGY (06/20/2003 0:00 EST) Pathology Report: CYTOPATHOLOGY REPORT Reports generated via electronic interface contain original data; however they are lacking the format of the original report. Caution should be taken when reading/interpreti ng unformatted reports. Name: ? AMA CHAPIN ? Accession #: ? [id number] : ? 1950 (Age: 53) ??F ?Collect Date: ? 06/20/2003 Location: ? [facility] ? Receive Date: ? 06/22/2003 Provider: ?ROSEANNE HARRIS BOND UNDERWRITER Copy to: ? Specimen/Source: ?ThinPrep Pap Test, Cervix/Endocervix Last Menstrual Period: ? 1999 Previous Gynecologic Pathology: ? Benign cellular changes: & Other: ? Additional clinical information: Paps 2000 & 2001 negative ? SPECIMEN ADEQUACY ? Satisfactory for Evaluation - transformation zone component present GENERAL CATEGORIZATION ? Negative for Intraepithelial Lesion or Malignancy ? Document reviewed and electronically signed by: ? MARLENA Lipscomb(ASCP) ? Report Date: ??06/27/2003 11:57 End of Report VIELKA DALTON 06/20/2003 06/22/2003 Roseanne Harris BOND UNDERWRITER PATHOLOGY ORDERABLES [facility] [address] [place] [address] documented in this encounter Visit Diagnoses Not on filedocumented in this encounter
--- OUTSIDE RECORDS SUMMARY | 2024-02-04 20:21 | XMS_ITS | Encounter Summary ---
Author Organization [facility] Address [address] [place] [address] Care Team Providers Care Emergency Room Nurse Name Role Phone Unavailable Primary Care Provider Unavailabl e Encounter Details Date Type Department Care Team (Late st Contact Info) Description 06/21/2004 Results Only [facility] - Maple conversion [address] [place] [address] Roseanne Harris, [facility] [address] [place] [address] Social History Tobacco Use Types [...] Priority Date/Time Associated Diagnosis Comments CYTOPATHOLOGY Routine 06/21/2004 0:00 EST documented in this encounter Results * CYTOPATHOLOGY (06/21/2004 0:00 EST) Pathology Report: CYTOPATHOLOGY REPORT Reports generated via electronic interface contain original data; however they are lacking the format of the original report. Caution should be taken when reading/interpreti ng unformatted reports. Name: ? AMA CHAPIN ? Accession #: ? [id number] : ? 1950 (Age: 54) ??F ?Collect Date: ? 06/21/2004 Location: ? [facility] ? Receive Date: ? 06/25/2004 Provider: ?ROSEANNE HARRIS LIME TRIMMER Copy to: ? Specimen/Source: ?ThinPrep Pap Test, Cervix/Endocervix Last Menstrual Period: ? 1999 Previous Gynecologic Pathology: ? Benign cellular changes: & Other: ? HPVA - HPV testing requested if ASC-US on the current ThinPrep Pap test. ? SPECIMEN ADEQUACY ? Satisfactory for Evaluation - transformation zone component present GENERAL CATEGORIZATION ? Negative for Intraepithelial Lesion or Malignancy ? Document reviewed and electronically signed by: ? Debbi Reed, SCT(ASCP) ? Report Date: ??06/28/2004 10:20 End of Report VIEL[facility] DAL[facility] 06/21/2004 06/25/2004 Roseanne Harris LIME TRIMMER PATHOLOGY ORDERABLES Performing Organization Address City/State/[facility] Co de Phone Number VIELKA DALTON [address] [place] [address] documented in this encounter Visit Diagnoses Not on filedocumented in this encounter
--- OUTSIDE RECORDS SUMMARY | 2024-02-04 20:21 | XMS_ITS | Clinical Summary ---
Author Organization [facility] Address [address] [place] [address] Care Team Providers Care Training Executive Name Role Phone Luis Lee MD Primary Care Provider Unav ailable Social History Tobacco Use Types Packs/Day Years Used Date Smoking Tobacco: Never Assessed Sex and Gender Information Value Date Recorded Sex Assigned at Not on file Gender Identity Not on file Sexual Orientation Not on file Plan of Treatment Health Maintenance Due Date Last Done Comments Hepatitis C Screen 1950 RSV Immunization ( o r 60+ Years) (1 - 1-dose 60+ series) 2010 Fall Risk Screening 2015 COVID-19 Vaccine (2022-24 season) 2023 Care Teams Training Executive Relationship Specialty Start Date End Date Luis Lee MD PCP - General 04/02/15
--- OUTSIDE RECORDS SUMMARY | 2024-02-04 20:21 | XMS_ITS | Encounter Summary ---
Author Organization [facility] Address [address] [place] [address] Care Team Providers Care Communications Project Lead Name Role Phone Unavailable Primary Care Provider Unavailabl e Encounter Details Date Type Department Care Team (Late st Contact Info) Description 09/23/2007 Results Only [facility] - Maple conversion [address] [place] [address] Roseanne Harris, [facility] [address] [facility] [place] [place] [address] Social History Tobacco Use Types Packs/Day Years Used Date Smoking Tobacco: Never Assessed Sex and Gender Information Value Date Recorded Sex Assigned at Not on file Gender Identity Not on file Sexual Orientation Not on file documented as of this encounter Plan of Treatment Not on file documented as of this encounter Procedures Procedure Name Priority Date/Time Associated Diagnosis Comments HPV DETECTION, HIGH RISK TYPES Routine 09/23/2007 16:20 EDT CYTOPATHOLOGY Routine 09/23/2007 0:00 EDT documented in this encounter Results * HUMAN PAPILLOMA VIRUS DNA TEST (09/23/2007 16:20 EDT) Specimen Description Cervix, ThinPrep vial [facility] Result Negative for HPV types 16, 18, 31, 33, 35, 39, 45, 51, 52, 56, 58, 59, and 68. [facility] Report Status Final [id number] [facility] 09/23/2007 16:2 0 EDT 10/01/2007 7:33 EDT Roseanne Harris GRADER MARKER MICROBIOLOGY - GENER AL ORDERABLES [facility] [address] [place] [address] * CYTOPATHOLOGY (09/23/2007 0:00 EDT) Pathology Report: CYTOPATHOLOGY REPORT Reports generated via electronic interface contain original data; however they are lacking the format of the original report. Caution should be taken when reading/interpreti ng unformatted reports. Name: ? AMA CHAPIN ? Accession #: ? [id number] : ? 1950 (Age: 57) ??F ?Collect Date: ? 09/23/2007 Location: ? [facility] ? Receive Date: ? 09/24/2007 Provider: ?ROSEANNE HARRIS GRADER MARKER Copy to: ? Specimen/Source: ?ThinPrep Pap Test, Cervix/Endocervix, processed on [employer] ThinPrep Imaging System, with manual evaluation Last Menstrual Period: ? 1999 Previous Gynecologic Pathology: ? Benign cellular changes: & Other: ? HPVDX - HPV testing requested regardless of diagnosis on current ThinPrep Pap test. ? SPECIMEN ADEQUACY ? Satisfactory for Evaluation - transformation zone component present GENERAL CATEGORIZATION ? Negative for Intraepithelial Lesion or Malignancy INTERPRETATION ? Reactive cellular changes associated with inflammation present (includes repair). ? COMMENT ? The cell sample is atrophic. ? Document reviewed and electronically signed by: ? ADRIEL RUBIO [facility] ? Report Date: ??09/30/2007 12:54 End of Report [facility] 09/23/2007 09/24/2007 Roseanne Harris GRADER MARKER PATHOLOGY ORDERABLES Performing Organization Address City/State/[facility] Co de Phone Number [facility] [address] [place] [address] documented in this encounter Visit Diagnoses Not on filedocumented in this encounter
--- OUTSIDE RECORDS SUMMARY | 2024-02-04 20:21 | XMS_ITS | Encounter Summary ---
Author Organization [facility] Address [address] [place] [address] Care Team Providers Care Feed Miller Name Role Phone Unavailable Primary Care Provider Unavailabl e Encounter Details Date Type Department Care Team (Late st Contact Info) Description 04/06/2002 Results Only [facility] - Maple conversion [address] [place] [address] Roseanne Harris, [facility] [address] [place] [address] Social History Tobacco Use Types [...] Priority Date/Time Associated Diagnosis Comments CYTOPATHOLOGY Routine 04/06/2002 0:00 EST documented in this encounter Results * CYTOPATHOLOGY (04/06/2002 0:00 EST) Pathology Report: CYTOPATHOLOGY REPORT Reports generated via electronic interface contain original data; however they are lacking the format of the original report. Caution should be taken when reading/interpreti ng unformatted reports. Name: ? AMA CHAPIN ? Accession #: ? [id number] : ? 1950 (Age: 52) ??F ?Collect Date: ? 04/06/2002 Location: ? [facility] ? Receive Date: ? 04/08/2002 Provider: ?ROSEANNE HARRIS MANAGER MANUFACTURING Copy to: ? Specimen/Source: ?ThinPrep Pap Test, Cervix/Endocervix Last Menstrual Period: ? 2 yrs ago ? SPECIMEN ADEQUACY ? Satisfactory for Evaluation - assessment of transformation zone component not applicable ( e.g. atrophy, vaginal sample, hysterectomy) GENERAL CATEGORIZATION ? Negative for Intraepithelial Lesion or Malignancy ? Document reviewed and electronically signed by: ? MARLENA Cassidy(ASCP) ? Report Date: ??04/13/2002 10:40 End of Report [facility] 04/06/2002 04/08/2002 Roseanne Harris MANAGER MANUFACTURING PATHOLOGY ORDERABLES [facility] [address] [place] [address] documented in this encounter Visit Diagnoses Not on filedocumented in this encounter
--- OUTSIDE RECORDS SUMMARY | 2024-02-04 20:21 | XMS_ITS | Referral Summary ---
Author Organization [facility] Address [address] [place] [address] Care Team Providers Care Baked Goods Stock Clerk Name Role Phone Luis Lee MD Primary Care Provider Unav ailable Social History Tobacco Use Types Packs/Day Years Used Date Smoking Tobacco: Never Assessed Sex and Gender Information Value Date Recorded Sex Assigned at Not on file Gender Identity Not on file Sexual Orientation Not on file Plan of Treatment Not on file Care Teams Baked Goods Stock Clerk Relationship Specialty Start Date End Date Luis Lee MD PCP - General 04/02/15
--- OUTSIDE RECORDS SUMMARY | 2024-02-04 20:21 | XMS_ITS | Encounter Summary ---
Author Organization [facility] Address [address] [place] [address] Care Team Providers Care High Frequency Mill Operator Name Role Phone Unavailable Primary Care Provider Unavailabl e Encounter Details Date Type Department Care Team (Late st Contact Info) Description 02/17/2011 Results Only [facility] - [facility] [address] [place], [place] [id number] Roseanne Harris, [facility] [address] [place] [address] Social History Tobacco Use Types Packs/Day Years Used Date Smoking Tobacco: Never Assessed Sex and Gender Information Value Date Recorded Sex Assigned at Not on file Gender Identity Not on file Sexual Orientation Not on file documented as of this encounter Plan of Treatment Not on file documented as of this encounter Procedures Procedure Name Priority Date/Time Associated Diagnosis Comments PAP TEST- RESULT ONLY Routine 02/17/2011 0:00 EDT documented in this encounter Results * PAP TEST- RESULT ONLY (02/17/2011 0:00 EDT) Pathology Report: CYTOPATHOLOGY REPORT ? Reports generated via electronic interface contain original data; ? however they are lacking the format of the original report. ? Caution should be taken when reading/interpreti ng unformatted reports. ? Name: ? AMA CHAPIN ? Accession #: ? [id number] ? : ? 1950 (Age: 61) ??F ?Collect Date: ? 02/17/2011 ? Location: ? [facility] ? Receive Date: ? 02/18/2011 ? Provider: ROSEANNE MAITE [employer] FLATBED DRIVER ? Copy to: ? Final Report ? SPECIMEN ADEQUACY ? Satisfactory for Evaluation ? - assessment of transformation zone component not applicable ( e.g. atrophy, ? vaginal sample, hysterectomy) ? GENERAL CATEGORIZATION ? Negative for Intraepithelial Lesion or Malignancy ? Last Menstural Period: 2000 ? Specimen/Source: ??Pap Test, Cervix/Endocervix, ThinPrep Imaging System with ? manual evaluation ? Document reviewed and electronically signed by: ? Katrina Holloway, [place](ASCP) ? Report ??Date: 02/24/2011 10:52 ? HPV with Pap Test ? Date Ordered: ? 02/24/2011 ? Status: ?? Signed Out ?Date Complete: ? 02/26/2011 ? By: ??System Interface ? Date Reported: ? 02/26/2011 ? Interpretation ? RESULT: Negative for HPV types 16, 18, 31, 33, 35, 39, 45, 51, 52, ? 56, 58, 59, and 68. ? Comments ? Document reviewed and electronically signed by: ? System Interface ? Report date: 02/26/2011 ? By the signature above, the attending physician certifies that he/she has ? personally conducted a gross and/or microscopic examination of the described ? specimens and rendered or confirmed the above diagnosis. ? End of Report ? VIELKA [facility] 02/17/2011 02/18/2011 Roseanne Harris [employer] FLATBED DRIVER PATHOLOGY ORDERABLES [facility] [address] [place] [address] documented in this encounter Visit Diagnoses Not on filedocumented in this encounter
--- OUTSIDE RECORDS SUMMARY | 2024-02-04 20:21 | XMS_ITS | Encounter Summary ---
Author Organization [facility] Address [address] [place] [address] Care Team Providers Care Bombsight Specialist Name Role Phone Unavailable Primary Care Provider Unavailabl e Encounter Details Date Type Department Care Team (Late st Contact Info) Description 08/24/2014 Results Only [facility] Laboratory Services - [facility] ([facility]) [address] [place], [place] [id number] Roseanne Harris, [facility] [address] [place] [address] Social History Tobacco Use Types [...] Diagnosis Comments PAP TEST- RESULT ONLY Routine 08/24/2014 0:00 EDT documented in this encounter Results * PAP TEST- RESULT ONLY (08/24/2014 0:00 EDT) Pathology Report: CYTOPATHOLOGY REPORT Reports generated via electronic interface contain original data; however they are lacking the format of the original report. Caution should be taken when reading/interpreti ng unformatted reports. Name: ? AMA CHAPIN ? Accession #: ? [id number] ? : ? 1950 (Age: 64) ??F ?Collect Date: ? 08/24/2014 ? Location: ? [facility] ? Receive Date: ? 08/25/2014 ? Provider: ROSEANNE HARRIS [facility] Copy to: MAGDIEL OSPINA MD ? Final Report SPECIMEN ADEQUACY ? Satisfactory for Evaluation - assessment of transformation zone component not applicable ( e.g. atrophy, vaginal sample, hysterectomy) - scant squamous epithelial component secondary to excessive inflammation GENERAL CATEGORIZATION ? Negative for Intraepithelial Lesion or Malignancy ?? Last Menstrual Period: 1999 Specimen/Source: ??Pap Test, Cervix/Endocervix, ThinPrep Imaging System with manual evaluation Document reviewed and electronically signed by: ? MARLENA Abdalla(ASCP) ? Report ??Date: 09/04/2014 15:22 HPV with Pap Test ? Date Ordered: ? 09/04/2014 ? Status: ?? Signed Out ?Date Complete: ? 09/06/2014 ? By: ??System Interface ? Date Reported: ? 09/06/2014 ? Interpretation RESULT: Negative for HPV. No E6 or E7 mRNA is detected from HPV types 16,18,31,33,35, 39,45,51,52,56,58, 59,66, and 68 by professional athletes coach mediated amplification. Comments Document reviewed and electronically signed by: ? System Interface ? Report date: 09/06/2014 By the signature above, the attending physician certifies that he/she has personally conducted a gross and/or microscopic examination of the described specimens and rendered or confirmed the above diagnosis. End of Report [facility] 08/24/2014 08/25/2014 Roseanne Harris COLLECTIONS CURATOR PATHOLOGY ORDERABLES Performing Organization Address City/State/[facility] Co de Phone Number [facility] [address] [place] [address] documented in this encounter Visit Diagnoses Not on filedocumented in this encounter
--- OUTSIDE RECORDS SUMMARY | 2024-02-04 20:21 | XMS_ITS | Encounter Summary ---
Author Organization [facility] Address [address] [place] [address] Care Team Providers Care Mosaic Technician Name Role Phone Unavailable Primary Care Provider Unavailabl e Encounter Details Date Type Department Care Team (Late st Contact Info) Description 09/25/2000 Results Only [facility] [address] [place] [address] Roseanne Harris, [facility] [address] [place] [address] Social History Tobacco Use Types [...] Priority Date/Time Associated Diagnosis Comments CYTOPATHOLOGY Routine 09/25/2000 0:00 EDT documented in this encounter Results * CYTOPATHOLOGY (09/25/2000 0:00 EDT) Pathology Report: CYTOPATHOLOGY REPORT Reports generated via electronic interface contain original data; however they are lacking the format of the original report. Caution should be taken when reading/interpreti ng unformatted reports. Name: ? AMA CHAPIN ? Accession #: ? [id number] : ? 1950 (Age: 50) ??F ?Collect Date: ? 09/25/2000 Location: ? [facility] ? Receive Date: ? 09/28/2000 Provider: ?ROSEANNE HARRIS COMMERCIAL RELATIONSHIP MANAGER Copy to: ? Specimen/Source: ?ThinPrep Pap Test, Cervix/Endocervix Last Menstrual Period: ? 1 year Previous Gynecologic Pathology: ? Benign cellular changes: & ? SPECIMEN ADEQUACY ? Satisfactory for evaluation. GENERAL CATEGORIZATION ? Within Normal Limits ? Document reviewed and electronically signed by: ? MARLENA Rutherford(ASCP) ? Report Date: ??09/29/2000 10:30 End of Report VIELKA DALTON 09/25/2000 09/28/2000 Roseanne Harris COMMERCIAL RELATIONSHIP MANAGER PATHOLOGY ORDERABLES VIELKA DALTON [address] [place] [address] documented in this encounter Visit Diagnoses Not on filedocumented in this encounter
--- OUTSIDE RECORDS SUMMARY | 2024-02-04 20:21 | XMS_ITS | Encounter Summary ---
Author Organization [facility] Address [address] [place] [address] Care Team Providers Care Staff Nurse Icu Resource Team Name Role Phone Unavailable Primary Care Provider Unavailabl e Encounter Details Date Type Department Care Team (Latest Contact Info) Description 09/08/2006 18:40 EDT Hospital Encounter [facility] - Other [address] [place] [address] Bruno Parker MD [address] [place] [address] Discharge Disposition: Home or Self Care Social History Tobacco Use Types Packs/Day Years Used Date Smoking Tobacco: Never Assessed Sex and Gender Information Value Date Recorded Sex Assigned at Not on file Gender Identity Not on file Sexual Orientation Not on file documented as of this encounter Discharge Disposition Disposition Code Departure Means Destination Home or Self Care documented in this encounter Plan of Treatment Not on file documented as of this encounter Visit Diagnoses Not on filedocumented in this encounter
--- OUTSIDE RECORDS SUMMARY | 2024-02-04 20:21 | XMS_ITS | Encounter Summary ---
Author Organization Health system Address [address] [place] [address] Care Team Providers Care Joinery Setter Out Name Role Phone Unavailable Primary Care Provider Unavailabl e Encounter Details Date Type Department Care Team (Late st Contact Info) Description 08/03/2006 Results Only [facility] - [facility] [address] [place] [address] Roseanne Harris, [facility] [address] [place] [address] Social History Tobacco Use Types [...] Priority Date/Time Associated Diagnosis Comments CYTOPATHOLOGY Routine 08/03/2006 0:00 EDT documented in this encounter Results * CYTOPATHOLOGY (08/03/2006 0:00 EDT) Pathology Report: CYTOPATHOLOGY REPORT Reports generated via electronic interface contain original data; however they are lacking the format of the original report. Caution should be taken when reading/interpreti ng unformatted reports. Name: ? AMA CHAPIN ? Accession #: ? [id number] : ? 1950 (Age: 56) ??F ?Collect Date: ? 08/03/2006 Location: ? [facility] ? Receive Date: ? 08/05/2006 Provider: ?ROSEANNE HARRIS CASE MAKER Copy to: ? Specimen/Source: ?ThinPrep Pap Test, Cervix/Endocervix, processed on [employer] ThinPrep Imaging System, with manual evaluation Last Menstrual Period: ? 1999 Previous Gynecologic Pathology: ? Benign cellular changes: , Other: ? HPVA - HPV testing requested [...] associated with inflammation present (includes repair). ? Document reviewed and electronically signed by: ? Susan Helton MD PhD ? Report Date: ??08/07/2006 12:40 End of Report VIELKA DALTON 08/03/2006 08/05/2006 Roseanne Harris CASE MAKER PATHOLOGY ORDERABLES VIELKA DALTON [address] [place] [address] documented in this encounter Visit Diagnoses Not on filedocumented in this encounter
--- OUTSIDE RECORDS SUMMARY | 2024-02-04 20:21 | XMS_ITS | Encounter Summary ---
Author Organization [facility] Address [address] [place] [address] Care Team Providers Care Teacher Of The Sight Impaired Name Role Phone Luis Lee MD Primary Care Provider Unav ailable Encounter Details Date Type Department Care Team (Late st Contact Info) Description 11/07/2019 Lab Requisition [facility] Pathology & Laboratory Medicine - [facility] [address], [place] [address] Outr Resulting Lab, Provider Social History Tobacco Use Types Packs/Day Years Used Date Smoking Tobacco: Never Assessed Sex and Gender Information Value Date Recorded Sex Assigned at Not on file Gender Identity Not on file Sexual Orientation Not on file documented as of this encounter Plan of Treatment Not on file documented as of this encounter Procedures Procedure Name Priority Date/Time Associated Diagnosis Comments ZZCOVID-19 TEST [facility] PCR Today 11/07/2019 13:20 EDT COVID-19 TESTING Routine 11/07/2019 13:2 0 EDT documented in this encounter Results * COVID-19 TEST [facility] PCR (11/07/2019 13:20 EDT) Swab ENTIRE NASOPHARYNX / Unknown 11/07/2019 13:20 EDT 11/07/2019 21:02 EDT Provider Outr Resulting Lab MICROBIOLOGY - GENERAL ORDERABLES [facility] [address] [place] [address] * COVID-19 TESTING (11/07/2019 13:20 EDT) COVID-19 rt-PCR Result Negative Negative 11/08/2019 13:48 EDT [facility] Comment: This test has not been FDA cleared or approved. This test has been authorized by FDA under an EUA for use by authorized laboratories. This test has been authorized only for detection of nucleic acid from 2019-nCoV, not for any other viruses or pathogens. This test is only authorized for the duration of the declaration that circumstances exist justifying the authorization of emergency use of in vitro diagnostic tests for detection and/or diagnosis of 2019-nCoV under section 564(b)(1) of Act, 21 U.S.C ?? 360bbb-3(b) (1), unless the authorization is terminated or revoked sooner. Negative results do not preclude 2019-nCoV infection and should not be used as the sole basis for treatment or other patient management decisions. Negative results must be combined with clinical observations, patient history, and epidemiological information. Performed on the [employer] | Anywhere Fusion instrument Performing Lab [place] [facility] Lab 11/08/2019 13:48 EDT [facility] Swab 11/07/2019 13:2 0 EDT 11/07/2019 21:02 EDT Provider Outr Resulting Lab MICROBIOLOGY - GENERAL ORDERABLES [facility] [address] [place] [address] documented in this encounter Visit Diagnoses Not on filedocumented in this encounter Care Teams Teacher Of The Sight Impaired Relationship Specialty Start Date End Date Luis Lee MD PCP - General 04/02/15 documented as of this encounter"
--- OUTSIDE RECORDS SUMMARY | 2024-02-04 20:21 | XMS_ITS | Encounter Summary ---
Author Organization [facility] Address [address] [place] [address] Care Team Providers Care Sound Ranging Crewmember Name Role Phone Unavailable Primary Care Provider Unavailabl e Encounter Details Date Type Department Care Team (Late st Contact Info) Description 07/25/2005 Results Only [facility] - [place] conversion [address] [place] [address] Roseanne Harris, [facility] [address] [place] [address] Social History Tobacco Use Types [...] Priority Date/Time Associated Diagnosis Comments CYTOPATHOLOGY Routine 07/25/2005 0:00 EST documented in this encounter Results * CYTOPATHOLOGY (07/25/2005 0:00 EST) Pathology Report: CYTOPATHOLOGY REPORT Reports generated via electronic interface contain original data; however they are lacking the format of the original report. Caution should be taken when reading/interpreti ng unformatted reports. Name: ? AMA CHAPIN ? Accession #: ? [id number] : ? 1950 (Age: 55) ??F ?Collect Date: ? 07/25/2005 Location: ? [facility] ? Receive Date: ? 07/28/2005 Provider: ?ROSEANNE HARRIS OFF PREMISE SERVICE REPRESENTATIVE Copy to: ? Specimen/Source: ?ThinPrep Pap Test, Cervix/Endocervix, processed on [employer] ThinPrep Imaging System, with manual evaluation Last Menstrual Period: ? 1999 Previous Gynecologic Pathology: ? Benign cellular changes: and Other: ? HPVA - HPV testing requested if ASC-US on the current ThinPrep Pap test. ? SPECIMEN ADEQUACY ? Satisfactory for Evaluation - assessment of transformation zone component not applicable ( e.g. atrophy, vaginal sample, hysterectomy) GENERAL CATEGORIZATION ? Negative for Intraepithelial Lesion or Malignancy ? Document reviewed and electronically signed by: ? Debbi Reed, SCT(ASCP) ? Report Date: ??07/30/2005 13:07 End of Report VIELKA DALTON 07/25/2005 07/28/2005 Roseanne Harris OFF PREMISE SERVICE REPRESENTATIVE PATHOLOGY ORDERABLES Performing Organization Address City/State/[facility] Co de Phone Number VIELKA DALTON [address] [place] [address] documented in this encounter Visit Diagnoses Not on filedocumented in this encounter
== END 2024-02-04 20:19 | disposition home or self-care (01) ==
LOC: LBN 20:18
PROVIDERS: PCP Student in an Organized Health Care Education/Training Program; Visit Provider Physician Assistant Medical
DX: R10.9 Unspecified abdominal pain (principal)
CPT/HCPCS: 87480; 87510; 87660

== ENCOUNTER 2024-11-10 12:13 | Outpatient (CLI) | payer MEDICARE, BC, SELFPAY ==
--- NOTE | 2024-11-10 11:45 | DI.RAD_ITS ---
Exam(s) XR RIBS LT W PA LAT CHEST EXAM: XR RIBS LT W PA LAT CHEST CLINICAL HISTORY: pain in rib L, PLEURODYNIA R07.81 TECHNIQUE: 2D digital imaging was performed. Six images are obtained. COMPARISON: CR XR RIBS LT W PA LAT CHEST from 06/21/2019 CR XR PORTABLE CHEST AP from 11/07/2019 FINDINGS: MEDIASTINUM: Normal. HEART: Normal. PULMONARY VASCULATURE: Normal. LUNGS: Clear. PLEURAL SPACE: No pleural effusion or pneumothorax. BONE:Within normal limits for the patient's age. LEFT RIBS: There is a question of a nondisplaced fracture through the anterolateral aspect of the left 7th rib (series 5, image 1). OTHER FINDINGS:Normal. IMPRESSION: 1. No acute pulmonary findings. 2. Question of a nondisplaced fracture of the anterolateral aspect of the left 7th rib (series 5, image 1). DATA REPOSITORY: RADIATION DOSE DELIVERED:
== END 2024-11-10 12:33 ==
LOC: DI 12:14
PROVIDERS: PCP Student in an Organized Health Care Education/Training Program; Visit Provider Family Medicine
DX: R07.81 Pleurodynia (principal); R93.89 Abnormal findings on diagnostic imaging of other specified body structures
CPT/HCPCS: 71046; 71100